=== PATIENT | male | born 1960 | race Caucasian/White ===

== ENCOUNTER 2016-12-06 15:14 | Emergency (ER) | payer OTHER ==
[~2016-12-06] VITALS: Ht 177.8 cm; Wt 84.7 kg
[2016-12-06 15:24] VITALS: Ht 177.8 cm; Wt 84.7 kg
[2016-12-06] MEDS ORDERED: LIDOCAINE/MYLANTA 40 ML BTL PO STA (19:44)
[2016-12-06] MEDS ORDERED: SOD CHLORIDE 0.9% 1,000 ML IV STA (19:44)
[2016-12-06] MEDS ORDERED: BELLADONNA/PHENOBARBITAL TAB PO STA (19:44)
[2016-12-06] MEDS ORDERED: ONDANSETRON 4 MG INJ IV STA (19:44)
[2016-12-06] MEDS ORDERED: FAMOTIDINE 20 MG TAB PO STA (19:44)
[2016-12-06] MEDS ORDERED: LORAZEPAM 2 MG INJ IV ONE (20:00)
[2016-12-06] MEDS ORDERED: MULTIVITAMINS 10 ML, THIAMINE 100 MG, FOLIC ACID 1 MG, MAGNESIUM SULFATE 2 GM in SOD CH... IV ONE (20:00)
[2016-12-06 20:23] LABS: ADD SCAN DIFF NO
[2016-12-06 20:36] LABS: ALBUMIN 4.4 g/dl (3.3-4.9); CHLORIDE 99 mmol/L (97-110)
[2016-12-06 20:37] LABS: POTASSIUM 3.8 mmol/L (3.5-5.1); SODIUM 142 mmol/L (135-144)
[2016-12-06 20:38] LABS: ABNORMAL IP MESSAGE 1; BASOPHIL # 0.1 10^3/ul (0.0-0.1); BASOPHILS % 1.2 % (0.0-2.0); EOSINOPHILS # 0.1 10^3/ul (0.0-0.5); EOSINOPHILS % 0.9 % (0.0-7.0); HEMATOCRIT 47.1 % (42.0-52.0); LYMPHOCYTES # 2.3 10^3/ul (0.8-2.9); LYMPHOCYTES % 34.2 % (15.0-51.0); MEAN CORPUSCULAR HEMOGLOBIN 30.1 pg (29.0-33.0); MEAN CORPUSCULAR VOLUME 88.5 fl (82.0-101.0); MEAN PLATELET VOLUME 12.6 fl (7.4-10.4); MONOCYTE # 0.5 10^3/ul (0.3-0.9); MONOCYTES % 7.5 % (0.0-11.0); NEUTROPHIL # 3.8 10^3/ul (1.6-7.5); NEUTROPHILS % 55.9 % (39.0-77.0); PLATELET COUNT 79 10^3/UL (140-415); RED BLOOD COUNT 5.32 10^6/ul (4.70-6.10); WHITE BLOOD COUNT 6.8 10^3/ul (4.8-10.8)
[2016-12-06 20:39] LABS: ALBUMIN/GLOBULIN RATIO 1.18; ALKALINE PHOSPHATASE 154 IU/L (42-121); ANION GAP 21 (8-16); ASPARTATE AMINO TRANSFERASE 561 IU/L (15-46); BILIRUBIN,INDIRECT 0.8 mg/dl (0-1.1); BILIRUBIN,TOTAL 0.8 mg/dl (0.2-1.3); BLOOD UREA NITROGEN 7 mg/dl (7-20); CARBON DIOXIDE 26 mmol/L (21-31); CREATININE 0.57 mg/dl (0.61-1.24); TOTAL PROTEIN 8.1 g/dl (6.1-8.1)
[2016-12-06 20:40] LABS: ALANINE AMINOTRANSFERASE 276 IU/L (13-69); CALCIUM 9.1 mg/dl (8.4-10.2); GLUCOSE 87 mg/dl (70-220)
[2016-12-06 20:58] LABS: PLATELET ESTIMATE PLT APPEAR DECREASED
[2016-12-06 21:09] LABS: TROPONIN-I < 0.010 ng/ml (0.00-0.12)
[2016-12-06] MEDS ORDERED: MAG355OR14 PO (21:14)
[2016-12-06] MEDS ORDERED: CHLO25CA9 PO (21:14)
--- NOTE | 2016-12-06 21:22 | ERD ---
ER Documentation Chief Complaint Date/Time DATE: 12/06/16 TIME: 21:15 Chief Complaint Vomiting X 1 week , staying at sober living, hx of seizures. HPI 56-year-old man with a history of alcoholism states she has been trying to quit and stopped drinking about 2-3 days ago. He states he is in withdrawal at this time and feels like he is going to have a seizure although he denies recent seizure activity. He states he has had multiple episodes of daily clear nonbloody nonbilious emesis. He denies fevers or chills, no blood per rectum or melena, no chest pain or shortness of breath. Patient denies suicidal homicidal ideation. Patient also requests a prescription for Librium. ROS All systems reviewed and are negative except as per history of present illness. Medications Home Meds Active Scripts Mag Hydrox/Al Hydrox/Simeth (Maalox Advanced Suspension) 355 Ml Oral.susp, 2 TSP PO TID for PAIN, #24 OZ Prov:JEREMY PALOMINO MD 12/06/16 Chlordiazepoxide* (Chlordiazepoxide*) 25 Mg Capsule, 25 MG PO Q8 Y for CONTROL WITHDRAWAL SYMPTOMS, #15 CAP Prov:JEREMY PALOMINO MD 12/06/16 Allergies Allergies: Coded Allergies: No Known Allergy (Unverified , 01/30/15) PMhx/Soc Alcoholism, alcohol withdrawal seizures History of Surgery: Yes (SHANICE INGUINA LHERNIA, HEMORRHOID) Hx Neurological Disorder: Yes (SEIZURE) Hx Psychiatric Problems: Yes (BIPOLAR) Hx Miscellaneous Medical Probl: Yes (HEP. C) Hx Alcohol Use: Yes (NO ALCOHOL FOR 9 DAYS NOW) Hx Substance Use: No Hx Tobacco Use: Yes FmHx Family History: No diabetes Physical Exam Vitals Vital Signs Date Time Temp Pulse Resp B/P Pulse Ox O2 Delivery O2 Flow Rate FiO2 12/06/16 15:24 96.7 105 18 127/99 97 Physical Exam GENERAL: Well-developed, dehydrated man, appears in mild withdrawal HEENT: Dry mucous membranes, pink conjunctiva, no cervical spine tenderness or step-off deformities, no goiter, no jaundice or icterus, extraocular movements intact without pain. No submandibular induration, and no pharyngeal erythema NEURO: Alert and oriented 3, cranial nerves II through XII intact bilaterally, pupils equal round reactive to light, no focal deficits or facial asymmetry, sensation intact distally Strength 5/5 in upper and lower extremities bilaterally. Positive horizontal nystagmus noted, positive tongue tremor and bilateral upper extremity tremors CARDIAC: Tachycardic and regular, no murmurs rubs or gallops LUNGS: Clear bilaterally no wheezing crackles or stridor ABDOMEN: Soft nontender, no guarding, no rigidity, no rebound, no psoas sign no obturator sign. Normoactive bowel sounds SKIN: Warm and dry to touch, no abrasions, contusions, or hematomas, no lacerations, no ecchymosis, no target lesions, and without ulcers EXTREMITIES: No clubbing cyanosis or edema, calves are bilaterally symmetrical, no Homans sign, no popliteal cord sign. Distal pulses equal and bilateral PSYCH: Normal affect without agitation or irritability Result Diagram: 12/06/16 [facility] 12/06/16 [facility] Results 24 hrs Laboratory Tests Test 12/06/16 19:50 Alanine Aminotransferase (ALT/SGPT) 276IU/L Albumin 4.4g/dl Albumin/Globulin Ratio 1.18 Alkaline Phosphatase 154IU/L Anion Gap 21 Aspartate Amino Transf (AST/SGOT) 561IU/L Basophils # 0.110^3/ul Basophils % 1.2% Blood Urea Nitrogen 7mg/dl Calcium Level 9.1mg/dl Carbon Dioxide Level 26mmol/L Chloride Level 99mmol/L Creatinine 0.57mg/dl Direct Bilirubin 0.00mg/dl Eosinophils # 0.110^3/ul Eosinophils % 0.9% Globulin 3.70g/dl Glucose Level 87mg/dl Hematocrit 47.1% Hemoglobin 16.0g/dl Indirect Bilirubin 0.8mg/dl Lipase 48U/L Lymphocytes # 2.310^3/ul Lymphocytes % 34.2% Mean Corpuscular Hemoglobin 30.1pg Mean Corpuscular Hemoglobin Concent 34.0g/dl Mean Corpuscular Volume 88.5fl Mean Platelet Volume 12.6fl Monocytes # 0.510^3/ul Monocytes % 7.5% Neutrophils # 3.810^3/ul Neutrophils % 55.9% Nucleated Red Blood Cells # 0.010^3/ul Nucleated Red Blood Cells % 0.0/100WBC Platelet Count 7910^3/UL Platelet Estimate PLT APPEAR DECREASED Potassium Level 3.8mmol/L Red Blood Count 5.3210^6/ul Red Cell Distribution Width 16.0% Sodium Level 142mmol/L Total Bilirubin 0.8mg/dl Total Protein 8.1g/dl Troponin I < 0.010ng/ml White Blood Count 6.810^3/ul Current Medications Medications (Trade) Dose Ordered Sig/Braulio Route PRN Reason Start Time Stop Time Status Last Admin Dose Admin Lorazepam (Ativan) 1 mg ONCE ONCE IV 12/06/16 20:00 12/06/16 20:01 DC 12/06/16 19:58 Ondansetron HCl 4 mg 4 mg ONCE STAT IV 12/06/16 19:44 12/06/16 19:46 DC 12/06/16 19:58 Multivitamins 10 ml/Thiamine HCl 100 mg/Folic Acid 1 mg/Magnesium Sulfate 2 gm/ Sodium Chloride 1,015.2 ml @ 500 mls/ hr Q2H2M ONCE IV 12/06/16 20:00 12/06/16 22:01 Sodium Chloride (NS) 1,000 ml @ 1,000 mls/hr Q1H STAT IV 12/06/16 19:44 12/06/16 20:43 DC 12/06/16 19:57 Famotidine (Pepcid) 40 mg ONCE STAT PO 12/06/16 19:44 12/06/16 19:46 DC 12/06/16 19:58 Miscellaneous Medication (Gi Cocktail (2)) 40 ml ONCE STAT PO 12/06/16 19:44 12/06/16 19:46 DC 12/06/16 19:58 Belladonna/ Phenobarbital () 2 tab ONCE STAT PO 12/06/16 19:44 12/06/16 19:46 DC 12/06/16 19:58 Procedures/MDM IV line was established patient was placed on cafe assistant rhythm strip revealed a sinus tachycardia at 100 bpm with upright P and T waves. Patient was afebrile. I administered 1 L normal saline intravenously, Zofran 4 mg IV, and lorazepam 1 mg IV with good effect. Patient also received a banana bag with multivitamin, thiamine, folate, and magnesium. EKG performed, read by me revealed a normal sinus rhythm at 92 bpm, normal axis , narrow QRS complex, no concerning ST elevations or depressions noted. CBC revealed thrombocytopenia at 79,000, electrolytes were unremarkable, liver function tests revealed transaminitis consistent with alcohol abuse, lipase was normal, troponin was negative. Patient had no seizure activity while here and his symptoms improved dramatically. He feels much better and had no episodes of vomiting while here. He is able to tolerate p.o. and will be managed as an outpatient. I gave him both verbal and written recommendations as well as the address and phone number to [facility]. I will also provide him with a short prescription of chlordiazepoxide to help his withdrawal symptoms, although I recommended elective inpatient management for alcoholism and symptoms of withdrawal. Differential diagnoses considered, included but not limited to acute coronary syndrome, pulmonary embolism, aortic dissection, abdominal aortic aneurysm, sepsis, stroke, meningitis, encephalitis, pneumonia, appendicitis, cholecystitis , bowel obstruction, pyelonephritis, nephrolithiasis, cystitis, as well as metabolic, hematologic, and electrolyte abnormalities. As well as abscess, cellulitis, fractures, and dislocations. Patient feels much better at this time, and vital signs are normal, symptoms have improved. I did give strict instructions to return to the ED if symptoms continue or worsen, patient will otherwise follow-up with primary care physician. Patient understood instructions and agreed to plan. Departure Diagnosis: Primary Impression: Alcohol withdrawal Complication of substance-induced condition: uncomplicated Qualified Code: F10.230 - Alcohol withdrawal, uncomplicated Additional Impressions: Alcohol abuse Dehydration Thrombocytopenia Vomiting Vomiting type: unspecified Vomiting Intractability: non-intractable Nausea presence: with nausea Qualified Code: R11.2 - Non-intractable vomiting with nausea, unspecified vomiting type Condition: Good Patient Instructions: Alcohol Withdrawal, Alcohol Abuse JREEMY PALOMINO MD Dec 06, 2016 21:22
[2016-12-06 23:00] VITALS: BP 151/90; PULSE 92; RESP 22; TEMP 98.1
== END 2016-12-06 23:06 | disposition home or self-care (01) ==
LOC: E/R 15:14
DX: F10.230 Alcohol dependence with withdrawal, uncomplicated (principal); E86.0 Dehydration; D69.6 Thrombocytopenia, unspecified; R11.2 Nausea with vomiting, unspecified; F17.210 Nicotine dependence, cigarettes, uncomplicated; R40.2142 Coma scale, eyes open, spontaneous, at arrival to emergency department; R40.2252 Coma scale, best verbal response, oriented, at arrival to emergency department; R40.2362 Coma scale, best motor response, obeys commands, at arrival to emergency department
CPT/HCPCS: 36415; 80053; 83690; 84484; 85025; 93005; 96374; 96375; J2060; J2405; J3411; J3475; J7030; Z7502; Z7610

== ENCOUNTER 2017-03-06 03:16 | Day surgery (SDC) | payer OTHER ==
[2017-03-06] VITALS (17 sets, daily range): BP systolic 101–139; BP diastolic 63–89; PULSE 78–92; RESP 18–28; TEMP 97.8; Ht 175.3 cm; Wt 94.4 kg
[~2017-03-06] VITALS: Ht 175.3 cm; Wt 94.4 kg
[~2017-03-06 03:16] MED LIST: CHLO25CA9 PO; MAG355OR14 PO
[2017-03-06] MEDS ORDERED: morphine 4 MG/ML VIAL IV STA (04:02)
[2017-03-06] MEDS ORDERED: ONDANSETRON 4 MG INJ IV STA (04:02)
[2017-03-06] MEDS ORDERED: SOD CHLORIDE 0.9% 1,000 ML IV STA (04:02)
[2017-03-06 04:12] LABS: ADD SCAN DIFF NO
--- NOTE | 2017-03-06 04:12 | ERD ---
ER Documentation Chief Complaint Date/Time DATE: 03/06/17 TIME: 04:08 Chief Complaint RLQ abd pain x 1 day HPI 56-year-old man complains of right lower quadrant abdominal pain 1 day, he has had no anorexia, no fevers or chills, no vomiting or diarrhea. Patient has had bilateral inguinal hernia. Patient denies melena or blood per rectum. ROS All systems reviewed and are negative except as per history of present illness. Medications Home Meds Reported Medications Multivitamins* (Theragran*) 1 Tab Tab, 1 TAB PO DAILY, TAB 03/06/17 Omeprazole* (Omeprazole*) 20 Mg Capsule.dr, 20 MG PO DAILY, #30 CAP 03/06/17 Phenytoin* Sodium Extended (Dilantin*) 300 Mg Capsule, 300 MG PO HS, CAP 03/06/17 Discontinued Scripts Mag Hydrox/Al Hydrox/Simeth (Maalox Advanced Suspension) 355 Ml Oral.susp, 2 TSP PO TID for PAIN, #24 OZ Prov:JEREMY PALOMINO MD 12/06/16 Chlordiazepoxide* (Chlordiazepoxide*) 25 Mg Capsule, 25 MG PO Q8 Y for CONTROL WITHDRAWAL SYMPTOMS, #15 CAP Prov:JEREMY PALOMINO MD 12/06/16 Allergies Allergies: Coded Allergies: No Known Allergy (Unverified , 01/30/15) PMhx/Soc Herniography History of Surgery: Yes (SHANICE INGUINA LHERNIA, HEMORRHOID) Hx Neurological Disorder: Yes (SEIZURE disorder) Hx Respiratory Disorders: No Hx Cardiac Disorders: No Hx Psychiatric Problems: Yes (BIPOLAR disorder) Hx Miscellaneous Medical Probl: Yes (HEP. C) Hx Alcohol Use: Yes (last drink: 1 beer this morning) Hx Substance Use: Yes (history of cocaine) Hx Tobacco Use: Yes (1 pack/ day) Smoking Status: Current every day smoker FmHx Family History: No diabetes Physical Exam Vitals Vital Signs Date Time Temp Pulse Resp B/P Pulse Ox O2 Delivery O2 Flow Rate FiO2 03/06/17 03:19 98.3 85 20 165/102 97 Physical Exam GENERAL: Well-developed, well-nourished, well-hydrated, in no apparent distress , looks nontoxic in appearance HEENT: Moist mucous membranes, pink conjunctiva, no cervical spine tenderness or step-off deformities, no goiter, no jaundice or icterus, extraocular movements intact without pain. No submandibular induration, and no pharyngeal erythema NEURO: Alert and oriented 3, cranial nerves II through XII intact bilaterally, pupils equal round reactive to light, no focal deficits or facial asymmetry, sensation intact distally Strength 5/5 in upper and lower extremities bilaterally CARDIAC: Regular rate and rhythm, no murmurs rubs or gallops LUNGS: Clear bilaterally no wheezing crackles or stridor ABDOMEN: Positive right lower quadrant tenderness to touch with voluntary guarding and and some rigidity, no rebound SKIN: Warm and dry to touch, no abrasions, contusions, or hematomas, no lacerations, no ecchymosis, no target lesions, and without ulcers EXTREMITIES: No clubbing cyanosis or edema, calves are bilaterally symmetrical, no Homans sign, no popliteal cord sign. Distal pulses equal and bilateral PSYCH: Normal affect without agitation or irritability Result Diagram: 03/06/17 0330 03/06/17 0330 Results 24 hrs Laboratory Tests Test 03/06/17 03:30 03/06/17 04:19 White Blood Count 11.810^3/ul Red Blood Count 5.4310^6/ul Hemoglobin 16.3g/dl Hematocrit 46.9% Mean Corpuscular Volume 86.4fl Mean Corpuscular Hemoglobin 30.0pg Mean Corpuscular Hemoglobin Concent 34.8g/dl Red Cell Distribution Width 13.6% Platelet Count 9510^3/UL Mean Platelet Volume 13.4fl Prothrombin Time 13.5Sec Prothrombin Time Ratio 1.1 INR International Normalized Ratio 1.03 Sodium Level 140mmol/L Potassium Level 4.3mmol/L Chloride Level 106mmol/L Carbon Dioxide Level 23mmol/L Anion Gap 15 Blood Urea Nitrogen 13mg/dl Creatinine 0.71mg/dl Glucose Level 106mg/dl Calcium Level 8.9mg/dl Total Bilirubin 0.2mg/dl Direct Bilirubin 0.00mg/dl Indirect Bilirubin 0.2mg/dl Aspartate Amino Transf (AST/SGOT) 58IU/L Alanine Aminotransferase (ALT/SGPT) 54IU/L Alkaline Phosphatase 123IU/L Total Protein 7.6g/dl Albumin 3.9g/dl Globulin 3.70g/dl Albumin/Globulin Ratio 1.05 Lipase 71U/L Bedside Urine pH (LAB) 8.0 Bedside Urine Protein (LAB) Negative Bedside Urine Glucose (UA) Negative Bedside Urine Ketones (LAB) Negative Bedside Urine Blood Negative Bedside Urine Nitrite (LAB) Negative Bedside Urine Leukocyte Esterase (L Negative Current Medications Medications (Trade) Dose Ordered Sig/Braulio Route PRN Reason Start Time Stop Time Status Last Admin Dose Admin Sodium Chloride (NS) 1,000 ml @ 1,000 mls/hr Q1H STAT IV 03/06/17 04:02 03/06/17 05:01 DC 03/06/17 04:15 Morphine Sulfate (morphine) 4 mg ONCE STAT IV 03/06/17 04:02 03/06/17 04:04 DC 03/06/17 04:15 Ondansetron HCl (Zofran Inj) 4 mg ONCE STAT IV 03/06/17 04:02 03/06/17 04:04 DC 03/06/17 04:15 Clonidine 0.1 mg 0.1 mg ONCE ONCE PO 03/06/17 04:30 03/06/17 04:31 DC 03/06/17 05:20 Sodium Chloride 1,000 ml @ 1,000 mls/hr Q1H ONCE IV 03/06/17 06:00 03/06/17 06:59 UNV Piperacillin Sod/ Tazobactam Sod (Zosyn 3.375gm/ 100 ml (Pmx)) 100 ml @ 200 mls/hr ONCE ONCE IVPB 03/06/17 06:00 03/06/17 06:29 UNV Procedures/MDM IV line was established patient was placed on outside salesperson rhythm strip revealed a sinus rhythm at about 80 bpm with upright P and T waves. Patient was afebrile. I administered 1 L normal saline intravenously, morphine 4 mg IV, Zofran 4 mg IV and clonidine 0.1 mg p.o. for hypertension. CBC was unremarkable, electrolytes normal, liver function tests normal, coagulation profile normal. Urine dip normal. EKG performed, read by me: 83 bpm, normal sinus rhythm, normal axis, no acute ST segment changes, narrow QRS complex, with good R-wave progression in precordial leads. CT scan of the abdomen and pelvis reveals acute appendicitis. Please refer to radiologist dictation for full report. I treated the patient with Zosyn 3.375 g IV 1 and spoke to the surgeon entry level receptionist regarding the patient's CAT scan findings. Patient admitted to [facility] [place]. Departure Diagnosis: Primary Impression: Hypertension Hypertension type: essential hypertension Qualified Code: I10 - Essential hypertension Additional Impression: Acute appendicitis Acute appendicitis type: with localized peritonitis Qualified Code: K35.3 - Acute appendicitis with localized peritonitis Condition: JEREMY Pappas MD March 06, 2017 04:12
[2017-03-06] MEDS ORDERED: MULTI PO (04:13)
[2017-03-06] MEDS ORDERED: OMEP20CA16 PO (04:13)
[2017-03-06] MEDS ORDERED: PHEN300C2 PO (04:13)
[2017-03-06 04:14] LABS: ABNORMAL IP MESSAGE 1; HEMATOCRIT 46.9 % (42.0-52.0); HEMOGLOBIN 16.3 g/dl (14.0-18.0); MEAN CORPUSCULAR HGB CONC 34.8 g/dl (32.0-37.0); MEAN CORPUSCULAR VOLUME 86.4 fl (82.0-101.0); MEAN PLATELET VOLUME 13.4 fl (7.4-10.4); PLATELET COUNT 95 10^3/UL (140-415); RED BLOOD COUNT 5.43 10^6/ul (4.70-6.10); RED CELL DISTRIBUTION WIDTH 13.6 % (11.5-14.5); WHITE BLOOD COUNT 11.8 10^3/ul (4.8-10.8)
[2017-03-06 04:17] LABS: URINE BLOOD (Dip) POC Negative (NEGATIVE)
[2017-03-06 04:23] LABS: ALBUMIN 3.9 g/dl (3.3-4.9); POTASSIUM 4.3 mmol/L (3.5-5.1)
[2017-03-06 04:24] LABS: INR 1.03; PROTIME 13.5 Sec (12.2-14.2); PT RATIO 1.1
[2017-03-06 04:26] LABS: ALBUMIN/GLOBULIN RATIO 1.05; BILIRUBIN,INDIRECT 0.2 mg/dl (0-1.1); BILIRUBIN,TOTAL 0.2 mg/dl (0.2-1.3); CALCIUM 8.9 mg/dl (8.4-10.2); CREATININE 0.71 mg/dl (0.61-1.24); TOTAL PROTEIN 7.6 g/dl (6.1-8.1)
--- NOTE | 2017-03-06 05:28 | RADRPT ---
PROCEDURE: CT ABDOMEN/PELVIS WITHOUT CONTRAST CLINICAL INDICATION: 56-year-old male with right lower quadrant pain. TECHNIQUE: The study was performed utilizing a GE ezzai - how to arabiapeLPATH VCT 64-slice CT scanner. Direct axia l sections were obtained through the abdomen and pelvis without the use of intravenous contrast mate rial. Sagittal and coronal reformations were obtained. One or more of the following dose reduction t echniques were utilized: automated exposure control, adjustment of the mA and/or kV according to pat ient's size or use of iterative reconstruction technique. The images were reviewed on a PACS workst [place]. CTD/vol = 17.7 mGy; Total Exam DLP = 1157.6 mGy-cm. COMPARISON: None. FINDINGS: Proximal left coronary artery calcifications are partially visualized. There is minimal bibasilar s ubsegmental atelectasis. There is no evidence for significant pleural effusion. The liver has a no rmal size and contour without focal areas of abnormal density. No intrahepatic nor extrahepatic bili solomon ductal dilatation is seen. The gallbladder demonstrates no wall thickening nor pericholecystic f luid. No biliary stones are evident. The pancreas is without areas of abnormal attenuation. The spl een is identified and has a normal size without abnormal density. The adrenal glands are unremarkabl e. The kidneys are without abnormal density. No hydroureteronephrosis nor nephroureterolithiasis is evident. The urinary bladder contains urine. There is moderate hiatal hernia. There is retained sto ol within the colon without gross bowel obstruction. The appendix is diffusely edematous measuring up to 13 mm with mild surrounding inflammatory changes most suggestive of acute appendicitis. There is no significant free fluid. There is mild right and [id number] left inguinal hernias containing fat. The aortoiliac vessels are calcified but without aneurysmal dilatation. Degenerativ e changes are present within the spine. There is an old superior T12 compression fracture with appr oximately 30% loss of height with a Schmorl's node. IMPRESSION: 1. Moderate hiatal hernia. 2. Diffusely edematous appendix measuring up to 13 mm with surrounding inflammatory changes most echavarria ggestive of acute appendicitis. 3. Mild retained stool without evidence for bowel obstruction. 4. Mild right and rrab-qc-igizolzz left inguinal hernias containing fat. 5. Vascular calcifications. 6. Degenerative changes within the spine with old superior T12 compression fracture (30%). CRITICAL RESULTS: A call report was made to [facility] ER Dr. Gambino on March 06, 2017 at 05:23 a.m. .Josh Olvera MD, Date Time Electronically viewed and signed by .Josh Olvera MD, MD on 03/06/2017 05:27 .M/
[2017-03-06] MEDS ORDERED: PIPER-TAZO 3.375 GM IV (PMX) 100 ML IVPB ONE ×2 (06:00→13:00)
[2017-03-06] MEDS ORDERED: SOD CHLORIDE 0.9% 1,000 ML IV ONE (06:00)
[2017-03-06] MEDS ORDERED: ROCURONIUM 50 MG INJ ONE (07:00)
--- NOTE | 2017-03-06 08:45 | HP ---
DATE OF ADMISSION: 03/06/2017 CHIEF COMPLAINT: Abdominal pain. HISTORY OF PRESENT ILLNESS: The patient is a 56-year-old male with a history of seizure, bipolar, h epatitis C, bilateral inguinal hernias, who presented to the emergency department with abdominal mireya n. Pain is mainly localized in the right lower quadrant area with associated nausea and also consti pation. When he presented to the ER, blood pressure was 165/102, heart rate 85, respiratory rate 20 , temperature 98.3, oxygen saturation 97% on room air. CT abdomen and pelvis without contrast shows diffusely edematous appendix measuring up to 13 mm with surrounding inflammatory change, most sugge stive of acute appendicitis. Also noted was moderate hiatal hernia and mild right and mild to moder ate left inguinal hernias containing fat, mild retained stool without evidence of bowel obstruction. Laboratory values show a WBC of almost 12,000, platelet count 95, and AST of 58, otherwise CBC and CMP are within acceptable range. Dr. Mccoy, the on-call surgeon, has been notified by the ER sta ff. REVIEW OF SYSTEMS: A 12-point review of systems was performed and negative except as mentioned in t he HPI. PAST MEDICAL HISTORY: As per HPI. SOCIAL HISTORY: He drinks a beer or 2 every day. He also has a history of cocaine. He has been sm oking about a pack a day for a long time. ALLERGIES: NO KNOWN DRUG ALLERGIES. HOME MEDICATIONS: 1. Dilantin. 2. Prilosec. 3. Multivitamin. PHYSICAL EXAMINATION: VITAL SIGNS: Stable. GENERAL: The patient is in mild distress due to abdominal pain. He is, however, answering question s appropriately and able to speak in full sentences. HEENT: No obvious head deformity. Pupils are reactive to light. Extraocular muscles intact. CARDIOVASCULAR: Regular rate and rhythm with no extra sounds. LUNGS: Clear. ABDOMEN: Soft. There is tenderness diffusely but mainly to the right side of his abdomen in both l ower and upper quadrant. There is some guarding to deep palpation. No rigidity, no rebound tendern ess. There are positive bowel sounds. EXTREMITIES: No edema. NEUROLOGIC: No focal deficits. LABORATORY DATA: WBC 11.8 and platelets 95. Otherwise, CBC and CMP are within acceptable range. IMAGING: CT abdomen and pelvis without contrast with results as mentioned in the HPI. IMPRESSION: 1. Acute appendicitis. 2. Abdominal pain, secondary to above. 3. Constipation. 4. History of seizure. 5. History of bipolar. 6. Bilateral inguinal hernias. 7. History of hepatitis C. 8. Moderate hiatal hernia. PLAN: We will keep n.p.o. He will be placed on IV fluid. We will provide pain medication and anti emetics as needed. Currently, he is awaiting surgical evaluation. We will place him on IV anti-sei zure medication while he is n.p.o. and will also provide as needed Ativan for seizure. We will orde r a bowel regimen, suppository, for him as well. Further workup and management per clinical course. Dictated By: LUCIA YOUNG/JULIO Conf#: [id number] DID#: [id number]
[2017-03-06] MEDS ORDERED: BUPIVACAINE 0.25%/EPI (SDV) 30 ML INJ ONE (09:26)
[2017-03-06] MEDS ORDERED: LIDOCAINE 1% (MPF) 30 ML INJ ONE (09:26)
[2017-03-06] MEDS ORDERED: LIDOCAINE 1% (MDV) 20 ML INJ ONE (10:06)
[2017-03-06] MEDS ORDERED: PROPOFOL 20 ML ONE (10:06)
[2017-03-06] MEDS ORDERED: FENTAnyl 50 MCG/ML VIAL ONE (10:06)
[2017-03-06] MEDS ORDERED: MIDAZOLAM 1 MG/ML 2 ML INJ ONE (10:06)
[2017-03-06] MEDS ORDERED: SUCCINYLCHOLINE CHLORIDE 100 MG/5 ML SYG IV ONE (10:06)
[2017-03-06] MEDS ORDERED: ROPIVACAINE 0.2% 20 ML VIAL ONE (10:12)
[2017-03-06] MEDS ORDERED: CEFAZOLIN 1 GM INJ ONE (10:37)
[2017-03-06] MEDS ORDERED: FAMOTIDINE 20 MG INJ ONE (11:09)
[2017-03-06] MEDS ORDERED: ONDANSETRON 4 MG INJ ONE (11:09)
[2017-03-06] MEDS ORDERED: DEXAMETHASONE 4 MG/ML 1 ML INJ ONE (11:09)
[2017-03-06] MEDS ORDERED: KETOROLAC 30 MG INJ ONE (11:12)
[2017-03-06] MEDS ORDERED: NEOSTIGMINE 3 MG/3 ML SYRINGE ONE (11:13)
[2017-03-06] MEDS ORDERED: GLYCOPYRROLATE 0.4 MG INJ ONE (11:13)
--- NOTE | 2017-03-06 11:26 | CONS ---
Date/Time of Note Date/Time of Note DATE: 03/06/17 TIME: 11:26 Assessment/Plan Assessment/Plan Chief Complaint/Hosp Course 1. Abdominal pain with leukocytosis and CT diagnosis of Acute appendicitis -abx -lap appy -judicious fluid management 2. Alcoholism hx, currently sober -encourage cessation 3. Possible cirrhosis -medical and GI optimization 4. Hepatitis C -medical and GI optimization 5. Seizure hx -continue meds -optimize lytes 6. Bipolar disorder -medical and psychiatric optimization 7. Constipation. -bowel regimen 8. Moderate hiatal hernia. -stable Thank you very much for consulting me in this patient's care, Problems: Consultation Date/Type/Reason Admit Date/Time Date of Consultation: March 06, 2017 Type of Consultation: General surgical Reason for Consultation Abdominal pain Leukocytosis Acute appendicitis Referring Provider: JEREMY PALOMINO MD Hx of Present Illness Bethel Carlson is a 56-year-old male with multiple comorbidities who presented to the emergency department with abdominal pain. Pain is mainly localized in the right lower quadrant area with associated nausea and also constipation. Pain has been persisting for the past 2 days. No fevers or chills. No blood per mouth or rectum. No dysuria. No trauma or sick contacts. No chest pain shortness of breath. No visual neurologic changes. In ER CT abdomen and pelvis shows diffusely edematous appendix measuring up to 13 mm with surrounding inflammatory change, most suggestive of acute appendicitis. Also noted was moderate hiatal hernia and mild right and mild to moderate left inguinal hernias containing fat, mild retained stool without evidence of bowel obstruction. Laboratory values show a WBC of almost 12,000, platelet count 95, and AST of 58, otherwise CBC and CMP are within acceptable range. Surgical consult is obtained further evaluation and treatment. 12-point review of systems was performed and negative except as mentioned in the HPI. Past Medical History Seizure Bipolar Hepatitis C Bilateral inguinal hernias Alcoholism history Possible cirrhosis Acute appendicitis. Abdominal pain, secondary to above. Constipation. Moderate hiatal hernia. Past Surgical History Inguinal herniorrhaphy Family History Significant Family History: no pertinent family hx Social History Alcohol Use: sober (Used to drink heavy and was an alcoholic) Smoking Status: Current every day smoker Drug Use: cocaine (History) Exam/Review of Systems Vital Signs Vitals Vital Signs Date Time Temp Pulse Resp B/P Pulse Ox O2 Delivery O2 Flow Rate FiO2 03/06/17 09:31 81 20 151/98 98 Room Air 03/06/17 06:19 97.8 Intake and Output 03/05/17 03/05/17 03/06/17 15:00 23:00 07:00 Intake Total 0 ml Balance 0 ml Exam Constitutional: alert, oriented, No distress Psych: nl mood/affect, No anxiety, No confusion Head: atraumatic, normocephalic Eyes: EOMI, PERRL, nl conjunctiva, No icteric ENMT: mucosa pink and moist, nl external ears & nose, nl lips & teeth Neck: jvd (min), non-tender, supple Respiratory: normal air movement, No congested cough, No labored breathing Cardiovascular: regular rate and rhythm, No edema Gastrointestinal: soft, tender (min rlq), No distended, No rebound or guarding Genitourinary - Male: nl penis, nl scrotum Musculoskeletal: nl extremities to inspection, nl gait and stance, No joint tenderness Extremities: normal pulses, No calf tenderness, No edema Neurological: nl mental status, nl speech, nl strength Skin: nl turgor, No diaphoresis, No rash or lesions Lymph: nl lymph nodes Results Result Diagram: 03/06/17 0330 03/06/17 0330 Results 24 hrs Laboratory Tests Test 03/06/17 03:30 03/06/17 04:19 White Blood Count 11.8 #H Red Blood Count 5.43 Hemoglobin 16.3 Hematocrit 46.9 Mean Corpuscular Volume 86.4 Mean Corpuscular Hemoglobin 30.0 Mean Corpuscular Hemoglobin Concent 34.8 Red Cell Distribution Width 13.6 Platelet Count 95 #L Mean Platelet Volume 13.4 H Differential Comment AUTO w/SCAN Prothrombin Time 13.5 Prothrombin Time Ratio 1.1 INR International Normalized Ratio 1.03 Sodium Level 140 Potassium Level 4.3 Chloride Level 106 Carbon Dioxide Level 23 Anion Gap 15 Blood Urea Nitrogen 13 Creatinine 0.71 Glucose Level 106 Calcium Level 8.9 Total Bilirubin 0.2 Direct Bilirubin 0.00 Indirect Bilirubin 0.2 Aspartate Amino Transf (AST/SGOT) 58 H Alanine Aminotransferase (ALT/SGPT) 54 Alkaline Phosphatase 123 H Total Protein 7.6 Albumin 3.9 Globulin 3.70 H Albumin/Globulin Ratio 1.05 Lipase 71 Bedside Urine pH (LAB) 8.0 Bedside Urine Protein (LAB) Negative Bedside Urine Glucose (UA) Negative Bedside Urine Ketones (LAB) Negative Bedside Urine Blood Negative Bedside Urine Nitrite (LAB) Negative Bedside Urine Leukocyte Esterase (L Negative CHARLES GARCES MD March 06, 2017 11:26
[2017-03-06] MEDS ORDERED: HYDROmorphONE (0.2 MG/ML) 10ML SYG IV PRN ×2 (11:30)
[2017-03-06] MEDS ORDERED: ONDANSETRON 4 MG INJ IV PRN ×2 (11:30→12:00)
--- NOTE | 2017-03-06 11:55 | OPR ---
Date/Time of Note Date/Time of Note DATE: 03/06/17 TIME: 11:45 Operative Report Procedure Date: March 06, 2017 Procedure Description Preoperative Diagnosis 1. Acute appendicitis 2. Possible cirrhosis Postoperative Diagnosis 1. Acute appendicitis 2. Cirrhosis Operation Performed 1. Laparoscopic appendectomy 2. [place], [id number] 3. Laparoscopic guided bilateral transversus abdominis plane block Surgeon: CHARLES GARCES MD Anesthesia: general (Plus local plus regional) Anesthesiologist: Enoc Chan MD Estimated Blood Loss: 5 ml's Specimens: Appendix Tubes/Drains None Complications: None Pt Condition Post Procedure: stable Disposition: PACU Indications: Per consult note. Risks include but are not limited to bleeding, infection, abscess, seroma, leak , damage to intestines or any intra-abdominal/intrapelvic structures, hernia formation, chronic pain, need for re-operations or further surgeries, MO, stroke , PE, DVT, pneumonia, organ failures, or even . Procedure Note: Patient was brought into the operating room, placed supine on the operating table, SCDs were placed, left arm was tucked, all pressure points were well- padded, preoperative antibiotics administered, and after induction of anesthesia , he was prepped and draped in usual sterile fashion, and timeout was performed. Incision was made supraumbilically and the Veress needle was safely place into the abdomen. After negative sip test, abdomen was insufflated to 15 mmHg with CO2. At this point Veress was removed and the 5 mm blunt trocar was placed into the abdomen. Laparoscopy was performed and no injuries were identified using a 5 mm 30 scope. Under direct visualization another 5 mm port was placed and left lower quadrant and 12 mm port and suprapubic region avoiding the bladder. All incision sites were injected with quarter percent Marcaine with 1% lidocaine with epi. Bilateral transversus abdominis plane block was performed under laparoscopic visualization to aid with pain control intra-and postoperatively. There is also a left inguinal hernia with fat within it. The liver looks nodular and probably cirrhotic. Patient was placed in Trendelenburg and right side up. The appendix was found to be minimally inflamed. The base was transected using Endo MATILDE white load automatic 35 mm stapler just on the cecum. The pio were fired fully. The mesoappendix was transected with another white load stapler. Hemostasis was fully obtained. The appendix was placed in an Endo Catch bag and removed through the suprapubic port site. That fascia was closed with Endo Close and 0 Vicryl in a [id number] manner avoiding the bladder. Ports and CO2 were removed under direct visualization, wounds were fully irrigated, and skin was closed in subcuticular fashion using 4-0 Monocryl. Dermabond was applied. All counts were correct and the end of the operation 2. Patient was extubated and transferred to recovery room in stable condition. CHARLES GARCES MD March 06, 2017 11:55
[2017-03-06] MEDS ORDERED: HYDROmorphONE 1 MG/ML SYG IV PRN (12:00)
[2017-03-06] MEDS ORDERED: HYDROCODONE/APAP (5/325) TAB PO PRN (12:00)
[2017-03-06] MEDS ORDERED: SENNA/DOCUSATE NA (8.6MG/50MG) TAB PO PRN (12:00)
[2017-03-06] MEDS ORDERED: NON-FORMULARY/PATIENT OWN MED (Omeprazole* 20 MG) PO SCH (12:00)
[2017-03-06] MEDS ORDERED: ACETAMINOPHEN 500 MG TAB PO PRN (12:30)
[2017-03-06] MEDS ORDERED: PANTOPRAZOLE (EC) 40 MG TAB PO SCH (13:00)
[2017-03-06] MEDS ORDERED: D5-NS + KCL 20 MEQ 1,000 ML IV SCH (13:00)
--- NOTE | 2017-03-06 16:22 | PDOCDIS ---
Discharge Instructions CONDITION Patient Condition: Stable HOME CARE INSTRUCTIONS: Diet Instructions: Regular ACTIVITY: Activity Restrictions: Slowly Increase Activity FOLLOW UP/APPOINTMENTS Appointments Take your medications, see your doctor in the clinic in 1 week. SKYLER GONZALEZ March 06, 2017 16:22
[2017-03-06] MEDS ORDERED: HYDR-906 PO (16:25)
--- NOTE | 2017-03-06 16:55 | DS ---
DATE OF ADMISSION: 03/06/2017 DATE OF DISCHARGE: 03/06/2017 The patient came in with abdominal pain symptoms and has a prior history of seizures, bipolar disord er, hepatitis C. He was found to have acute appendicitis, seen by general surgery team and taken to the OR. He underwent surgical procedure, specifically a laparoscopic appendectomy. The patient to lerated the procedure well. Afterwards he was placed on liquid diet and advanced as tolerated. He was able to ambulate and tolerate a p.o. diet. He had some minor pain symptoms that were controlled with pain medications. After getting clearance from the surgery team, he will be discharged home t tanvi in improved condition. DISCHARGE MEDICATIONS: He will be sent with: 1. [place] 5/325 one tab p.o. q.6 p.r.n. 2. Multivitamin 1 tab daily. 3. Omeprazole 20 mg daily. 4. Dilantin 300 mg at bedtime. He will follow up with primary care doctor in the clinic in the next 1 to 2 weeks. FINAL DIAGNOSES: 1. Abdominal pain secondary to acute appendicitis, status post laparoscopic appendectomy. 2. History of constipation 3. History of seizure disorder. 4. History of bipolar disorder. 5. History by bilateral inguinal hernias. 6. History of hepatitis C. 7. History of moderate hiatal hernia. Time spent discharging patient: 35 minutes. Dictated By: SKYLER ALBA Conf#: [id number] DID#: [id number]
[2017-03-06] MEDS ORDERED: PIPER-TAZO 3.375 GM IV (PMX) 100 ML IVPB SCH (18:00)
[2017-03-06] MEDS ORDERED: PHENYTOIN 100 MG CAP PO SCH (21:00)
[2017-03-07] MEDS ORDERED: ENOXAPARIN 40 MG/0.4 ML SYG SC SCH (07:00)
[2017-03-07] MEDS ORDERED: MULTIVITAMINS THERAPEUTIC TAB PO SCH (09:00)
== END 2017-03-06 17:40 | disposition home or self-care (01) ==
LOC: E/R 03:16 → SDS 09:32 → MS2 13:08 → SDS 17:40
PROVIDERS: ATTEND Surgery
DX: K35.2 Acute appendicitis with generalized peritonitis (principal); K74.60 Unspecified cirrhosis of liver; G40.909 Epilepsy, unspecified, not intractable, without status epilepticus; K44.9 Diaphragmatic hernia without obstruction or gangrene; F31.9 Bipolar disorder, unspecified
CPT/HCPCS: 36415; 44970; 74176; 80053; 81003; 83690; 85025; 85610; 88304; 93005; 96374; 96375; J1100; J1170; J2250; J2270; J2405; J2543; J2710; J3010; J3480; J7030; J7999; Z7502; Z7512; Z7610; J0690; J1885; J2795

== ENCOUNTER 2017-07-09 19:02 | Emergency (ER) | payer OTHER ==
[~2017-07-09] VITALS: Ht 170.2 cm; Wt 85.5 kg
[~2017-07-09 19:02] MED LIST changes: -CHLO25CA9 PO; +HYDR-906 PO; -MAG355OR14 PO; +MULTI PO; +OMEP20CA16 PO; +PHEN300C2 PO
[2017-07-09 19:20] VITALS: Ht 170.2 cm; Wt 85.5 kg
[2017-07-09] MEDS ORDERED: ONDANSETRON 4 MG INJ IM STA (22:04)
[2017-07-09] MEDS ORDERED: ONDA4TAB11 PO (22:14)
[2017-07-09 22:29] VITALS: BP 126/91; PULSE 79; RESP 18
[2017-07-09] MEDS ORDERED: CHLORDIAZEPOXIDE 25 MG CAP PO ONE (22:30)
--- NOTE | 2017-07-09 22:30 | ERD ---
ER Documentation Chief Complaint Date/Time DATE: 07/09/17 TIME: 22:25 Chief Complaint etoh w/drawal- shaking, vomiting HPI Patient complaining that he is worried about getting alcohol withdrawals and would like IV medication. He did not drink for 6 months and then he started drinking occasionally for 2 weeks. He has not had a drink in 2 days. Stated he vomited earlier and was shaky. He is not shaking any longer but was in this ER previously and they gave him medication to the IV that made him feel good. Denies any chest pain shortness of breath hallucinations. ROS All systems reviewed and are negative except as per history of present illness. Medications Home Meds Active Scripts Ondansetron (Zofran Odt) 4 Mg Tab.rapdis, 4 MG PO Q6, #10 Prov:LARA PEREZ DO 07/09/17 Hydrocodone/Acetaminophen ([place]ace[place] 5-325 Tablet) 1 Each Tablet, 1 EACH PO Q6, #20 TAB Prov:SKYLER GONZALEZ. 03/06/17 Reported Medications Multivitamins* (Theragran*) 1 Tab Tab, 1 TAB PO DAILY, TAB 03/06/17 Omeprazole* (Omeprazole*) 20 Mg Capsule.dr, 20 MG PO DAILY, #30 CAP 03/06/17 Phenytoin* Sodium Extended (Dilantin*) 300 Mg Capsule, 300 MG PO HS, CAP 03/06/17 Allergies Allergies: Coded Allergies: No Known Allergy (Unverified , 01/30/15) PMhx/Soc History of Surgery: Yes (DOUBLE HERNIA (2004)) Anesthesia Reaction: No Hx Neurological Disorder: Yes (SEIZURE, BIPOLAR DISORDER) Hx Respiratory Disorders: No Hx Cardiac Disorders: No Hx Psychiatric Problems: Yes (BIPOLAR DISORDER) Hx Miscellaneous Medical Probl: Yes Hx Alcohol Use: Yes (December 16, quart of beer) Hx Substance Use: Yes Hx Tobacco Use: Yes (pack a day) Smoking Status: Smoker,current status unk Physical Exam Vitals Vital Signs Date Time Temp Pulse Resp B/P Pulse Ox O2 Delivery O2 Flow Rate FiO2 07/09/17 19:20 98.2 89 20 142/84 100 Physical Exam Const: [] Distress, sitting in chair calmly comfortably. No shaking Head: Atraumatic Eyes: Normal Conjunctiva ENT: Normal External Ears, Nose and Mouth. Neck: Full range of motion..~ No meningismus. Resp: Clear to auscultation bilaterally Cardio: Regular rate and rhythm, no murmurs Abd: Soft, non tender, non distended. Normal bowel sounds Skin: No petechiae or rashes Ext: No cyanosis, or edema Neur: Awake and alert 3, no focal deficits Psych: Normal Mood and Affect Results 24 hrs Current Medications Medications (Trade) Dose Ordered Sig/Braulio Route PRN Reason Start Time Stop Time Status Last Admin Dose Admin Chlordiazepoxide (Librium) 100 mg ONCE ONCE PO 07/09/17 22:30 07/09/17 22:31 07/09/17 22:23 Ondansetron HCl (Zofran Inj) 4 mg ONCE STAT IM 07/09/17 22:04 07/09/17 22:05 DC 07/09/17 22:23 Procedures/MDM Patient was stable vital signs that he was drinking on and off for 2 weeks. He has stable vital signs and no signs of alcohol withdrawals. No signs of distress whatsoever and waited 3 hours in ER with no vomiting or observed shaking. Feel this patient is very stable and appropriate for discharge. Did give him a Zofran for a gram IM injection to help with his nausea. Giving him a single Librium 100 mg tablet. Discharge with primary care follow-up within the next 2 or 3 days and return precautions. Departure Diagnosis: Primary Impression: Nausea Additional Impression: Alcohol abuse Condition: Stable Patient Instructions: Alcohol Abuse Referrals: [facility] YOU HAVE RECEIVED A MEDICAL SCREENING EXAM AND THE RESULTS INDICATE THAT YOU DO NOT HAVE A CONDITION THAT REQUIRES URGENT TREATMENT IN THE EMERGENCY DEPARTMENT. FURTHER EVALUATION AND TREATMENT OF YOUR CONDITION CAN WAIT UNTIL YOU ARE SEEN IN YOUR DOCTORS OFFICE WITHIN THE NEXT 1-2 DAYS. IT IS YOUR RESPONSIBILITY TO MAKE AN APPOINTMENT FOR FOLOW-UP CARE. IF YOU HAVE A PRIMARY DOCTOR --you should call your primary doctor and schedule an appointment IF YOU DO NOT HAVE A PRIMARY DOCTOR YOU CAN CALL OUR PHYSICIAN REFERRAL HOTLINE AT IF YOU CAN NOT AFFORD TO SEE A PHYSICIAN YOU CAN CHOSE FROM THE FOLLOWING [facility] [address] [facility] [address] [facility] [address] [facility]. [facility] [address] [facility]. [facility] [address] [facility] [address] Additional Instructions: Call your primary care doctor TOMORROW for an appointment during the next 2-3 days.See the doctor sooner or return here if your condition worsens before your appointment time. LARA PEREZ DO Jul 09, 2017 22:30
== END 2017-07-09 22:30 | disposition home or self-care (01) ==
LOC: E/R 19:02
DX: R11.0 Nausea (principal); F17.210 Nicotine dependence, cigarettes, uncomplicated
CPT/HCPCS: 96372; J2405; Z7502; Z7610

== ENCOUNTER 2018-01-11 18:55 | Emergency (ER) | END 2018-01-12 02:53 | disposition home or self-care (01) ==

== ENCOUNTER 2018-03-07 06:37 | Emergency (ER) | END 2018-03-07 07:53 | disposition home or self-care (01) ==

== ENCOUNTER 2018-05-15 21:12 | Emergency (ER) | END 2018-05-16 00:45 | disposition home or self-care (01) ==

== ENCOUNTER 2018-06-20 18:19 | Emergency (ER) | END 2018-06-20 21:43 | disposition home or self-care (01) ==

== ENCOUNTER 2018-10-05 13:25 | Emergency (ER) | END 2018-10-05 20:30 | disposition left against medical advice (07) ==

== ENCOUNTER 2018-12-13 03:52 | Emergency (ER) | payer OTHER ==
[~2018-12-13] VITALS: Ht 177.8 cm; Wt 85.9 kg
[~2018-12-13 03:52] MED LIST changes: +CHLO25CA9 PO; -HYDR-906 PO; +OMEG-155 PO; +ONDA4TAB8 PO
[2018-12-13 04:02] VITALS: Ht 177.8 cm; Wt 85.9 kg
[2018-12-13] MEDS ORDERED: IBUPROFEN 600 MG TAB PO ONE (05:30)
[2018-12-13] MEDS ORDERED: IBUP-1542 PO (05:32)
--- NOTE | 2018-12-13 05:32 | ERD ---
ER Documentation Chief Complaint Chief Complaint states been drinking etoh, c/o body pain HPI This is a 4-year-old male states been drinking alcohol and complains of generalized body aches. Denies any acute trauma. Denies any fevers chills. Denies any nausea or vomiting. Denies any abdominal pain. Denies any trauma. ROS All systems reviewed and are negative except as per history of present illness. Medications Home Meds Active Scripts Ondansetron Hcl* (Zofran*) 4 Mg Tablet, 4 MG PO Q8H PRN for NAUSEA AND/OR VOMITING, #30 TAB Prov:JEREMY PALOMINO MD 10/05/18 Chlordiazepoxide* (Chlordiazepoxide*) 25 Mg Capsule, 25 MG PO Q8 PRN for CONTROL WITHDRAWAL SYMPTOMS, #12 CAP Prov:JEREMY PALOMINO MD 10/05/18 Reported Medications [place]-3S/Dha/Epa/Fish Oil (Fish Oil [place]-3 Softgel) 1 Each Capsule.dr, 1 EACH PO DAILY 10/05/18 Multivitamins* (Theragran*) 1 Tab Tab, 1 TAB PO DAILY, TAB 10/05/18 Phenytoin* Sodium Extended (Dilantin*) 300 Mg Capsule, 300 MG PO HS, CAP 10/05/18 Omeprazole* (Omeprazole*) 20 Mg Capsule.dr, 20 MG PO DAILY, #30 CAP 10/05/18 Allergies Allergies: Coded Allergies: No Known Allergy (Unverified , 10/05/18) PMhx/Soc History of Surgery: Yes (hernia repair , appy ) Anesthesia Reaction: No Hx Neurological Disorder: Yes (SEIZURE) Hx Respiratory Disorders: No Hx Cardiac Disorders: No Hx Psychiatric Problems: Yes (BIPOLAR DISORDER) Hx Miscellaneous Medical Probl: Yes (Hep C) Hx Alcohol Use: Yes (stopped drinking 03/28) Hx Substance Use: No Hx Tobacco Use: Yes (pack a day) Smoking Status: Current every day smoker Physical Exam Vitals Vital Signs Date Temp Pulse Resp B/P (MAP) Pulse Ox O2 O2 Flow FiO2 Time Delivery Rate 12/13/18 97.8 100 18 138/91 96 04:02 (107) Physical Exam Const: No acute distress Head: Atraumatic Eyes: Normal Conjunctiva ENT: Normal External Ears, Nose and Mouth. Neck: Full range of motion. No meningismus. Resp: Clear to auscultation bilaterally Cardio: Regular rate and rhythm, no murmurs Abd: Soft, non tender, non distended. Normal bowel sounds Skin: No petechiae or rashes Back: No midline or flank tenderness Ext: No cyanosis, or edema Neur: Awake and alert Psych: Normal Mood and Affect Results 24 hrs Current Medications Medications Dose Sig/Braulio Start Time Status Last (Trade) Ordered Route PRN Stop Time Admin Dose Reason Admin Ibuprofen 600 mg ONCE ONCE 12/13/18 (Motrin) PO 05:30 12/13/18 05:31 Procedures/MDM Emergency room course: Patient seen and evaluated. Given Motrin for pain. Medical decision makin-year-old male myalgias. Has been advised stop drinking and to increase p.o. fluid hydration with electrolyte rich fluids. Patient stable for outpatient management has been advised to seek outpatient treatment for alcoholism. Departure Diagnosis: Primary Impression: Myalgia Condition: Stable LUCIA PRADO Dec 13, 2018 05:32
[2018-12-13 06:12] VITALS: BP 135/104; PULSE 89; RESP 18
== END 2018-12-13 06:14 | disposition home or self-care (01) ==
LOC: E/R 03:52
DX: M79.10 Myalgia, unspecified site (principal); F17.210 Nicotine dependence, cigarettes, uncomplicated
CPT/HCPCS: Z7502; Z7610; 99282